=== PATIENT | male | born 1935 | race African-American/Black ===

== ENCOUNTER 2017-12-28 12:15 | Outpatient (RCR) | payer MEDICARE, BC | END 2018-01-27 | disposition home or self-care (01) | LOC: PTY 12:15 | DX: R26.89 Other abnormalities of gait and mobility (principal); Z98.1 Arthrodesis status; I10 Essential (primary) hypertension; I12.9 Hypertensive chronic kidney disease with stage 1 through stage 4 chronic kidney disease, or unspecified chronic kidney disease; N18.2 Chronic kidney disease, stage 2 (mild); Z85.46 Personal history of malignant neoplasm of prostate; G62.9 Polyneuropathy, unspecified; E78.5 Hyperlipidemia, unspecified; E66.9 Obesity, unspecified | CPT/HCPCS: 97110; 97116; 97161; G8978; G8979 ==

== ENCOUNTER 2018-02-03 10:30 | Outpatient (RCR) | payer MEDICARE, BC | END 2018-02-26 | disposition home or self-care (01) | LOC: PTY 10:30 | DX: R26.89 Other abnormalities of gait and mobility (principal); I12.9 Hypertensive chronic kidney disease with stage 1 through stage 4 chronic kidney disease, or unspecified chronic kidney disease; N18.2 Chronic kidney disease, stage 2 (mild); G62.9 Polyneuropathy, unspecified; E78.5 Hyperlipidemia, unspecified; M06.9 Rheumatoid arthritis, unspecified; Z85.46 Personal history of malignant neoplasm of prostate; Z98.1 Arthrodesis status | CPT/HCPCS: 97110; 97116; G8978; G8979; G8980 ==

== ENCOUNTER 2019-01-04 12:17 | Outpatient (CLI) | payer MEDICARE, BC ==
--- NOTE | 2019-01-04 13:56 | Diagnostic Imaging Report ---
Indication: Cough Technique: One view of the chest Comparison: none Findings: The lungs and pleural spaces are clear. The heart size is normal. The aorta is somewhat ectatic tortuous and calcified Impression: No acute process
== END 2019-01-04 14:17 | disposition home or self-care (01) ==
LOC: RAD 12:17
DX: Z01.811 Encounter for preprocedural respiratory examination (principal); D50.9 Iron deficiency anemia, unspecified; R05 Cough
CPT/HCPCS: 71045